=== PATIENT | female | born 1940 | race Caucasian/White ===

== ENCOUNTER → 2017-06-24 14:30 | Outpatient (CLI) | payer MEDICARE, MEDICAID | END | disposition home or self-care (01) | LOC: D.MAMMO 10:15 | DX: Z12.31 Encounter for screening mammogram for malignant neoplasm of breast (principal) ==

== ENCOUNTER 2017-09-26 09:27 | Emergency (ER) | payer MEDICARE, MEDICAID ==
[2017-09-26 12:28] LABS: BASOPHILS 0.1 % (0-2); EOSINOPHILS 0.1 % (0-7); HEMATOCRIT 36.2 % (36.0-48.0); HEMOGLOBIN 12.1 g/dL (12-16); IMMATURE GRANULOCYTES 0.4 % (0-5); LYMPHOCYTES 9.3 % (15-50); MCH 27.9 pg (26.0-34.0); MCHC 33.4 g/dL (31.0-37.0); MCV 83.6 fL (80.0-100.0); MONOCYTES 7.2 % (2-11); NEUTROPHILS 82.9 % (40-80); PLATELET COUNT 257 10x3/uL (130-400); RBC 4.33 10x6/uL (4.00-5.40); RDW 13.8 % (11.5-14.5); WBC 17.5 10x3/uL (4.8-10.8)
[2017-09-26 12:36] LABS: APTT 55.4 SECONDS (22.8-39.4); INR 2.3 (0.85-1.17); PROTIME 24.7 SECONDS (11.6-15.0)
[2017-09-26 12:40] LABS: ALBUMIN 3.1 g/dL (3.4-5.0); ALKALINE PHOSPHATASE 108 U/L (46-116); ALT (SGPT) 17 U/L (10-68); BILIRUBIN - TOTAL 0.37 mg/dL (0.2-1.3); CALC OSMOLALITY 274 mosm/kg (275-300); CALCIUM 9.3 mg/dL (8.5-10.1); CARBON DIOXIDE 21.9 mmol/L (21.0-32.0); CHLORIDE - SERUM 102 mmol/L (98-107); CREATININE - SERUM 0.7 mg/dL (0.6-1.3); GLUCOSE 125 mg/dL (74-106); POTASSIUM - SERUM 3.4 mmol/L (3.5-5.1); PROTEIN - SERUM 7.3 g/dL (6.4-8.2); SODIUM 136 mmol/L (136-145); UREA NITROGEN 19 mg/dL (7-18); eGFR NON AFRICAN AMERICAN 86 mL/min (90-120)
[2017-09-26 14:11] LABS: APPEARANCE CLEAR (CLEAR); BILIRUBIN NEGATIVE (NEGATIVE); COLOR YELLOW (YELLOW); GLUCOSE NEGATIVE (NEGATIVE); KETONE NEGATIVE (NEGATIVE); NITRITE NEGATIVE (NEGATIVE); PROTEIN 1+ mg/dL (NEGATIVE); SPECIFIC GRAVITY 1.015 (1.005-1.020); UROBILINOGEN NORMAL (NORMAL)
[2017-09-26 14:13] LABS: WHITE CELLS - URINE 0-5 /hpf (0-5)
[2017-09-26 14:14] LABS: BACTERIA FEW /hpf (NONE SEEN); EPITHELIAL CELLS 0-5 /hpf (0-5); MUCUS >1+ /lpf (NONE SEEN)
== END 2017-09-26 14:50 | disposition home or self-care (01) ==
LOC: D.ER 09:27
PROVIDERS: Nurse Practitioner Family
DX: S32.019A Unspecified fracture of first lumbar vertebra, initial encounter for closed fracture (principal); W01.0XXA Fall on same level from slipping, tripping and stumbling without subsequent striking against object, initial encounter; Y93.89 Activity, other specified; Y92.019 Unspecified place in single-family (private) house as the place of occurrence of the external cause; Z86.73 Personal history of transient ischemic attack (TIA), and cerebral infarction without residual deficits; I10 Essential (primary) hypertension

== ENCOUNTER 2018-06-26 08:00 | Outpatient (CLI) | payer MEDICARE, MEDICAID | END 2018-06-26 09:00 | disposition home or self-care (01) | LOC: D.MAMMO 08:00 | DX: Z12.31 Encounter for screening mammogram for malignant neoplasm of breast (principal) ==

== ENCOUNTER → 2019-06-19 09:29 | Outpatient (CLI) | payer MEDICARE, MEDICAID | END | disposition home or self-care (01) | LOC: D.HCCECHO 09:29 | PROVIDERS: ATTEND Internal Medicine Cardiovascular Disease | DX: I10 Essential (primary) hypertension (principal) ==

== ENCOUNTER 2019-06-28 08:00 | Outpatient (CLI) | payer MEDICARE, MEDICAID | END 2019-06-28 23:59 | disposition home or self-care (01) | LOC: D.MAMMO 08:00 | PROVIDERS: ATTEND Family Medicine | DX: Z12.31 Encounter for screening mammogram for malignant neoplasm of breast (principal) ==

== ENCOUNTER 2019-12-15 22:08 | Emergency (ER) | payer MEDICARE ==
[~2019-12-15] VITALS: Ht 172.7 cm; Wt 59.1 kg
[2019-12-15 22:25] VITALS: Ht 172.7 cm; Wt 59.1 kg
[2019-12-15] MEDS ORDERED: AMBIEN5 MG (22:29)
[2019-12-15] MEDS ORDERED: COUMADIN3 MG PO (22:29)
[2019-12-15] MEDS ORDERED: VALSARTAN-HCTZ1 EAC2 PO (22:29)
[2019-12-15] MEDS ORDERED: GEMFIBROZIL600 MG PO (22:29)
[2019-12-15] MEDS ORDERED: POTASSIUM CHLO10 ME1 PO (22:30)
[2019-12-15] MEDS ORDERED: OMEPRAZOLE20 M1 PO (22:30)
[2019-12-15] MEDS ORDERED: GLUCOPHAGE500 MG PO (22:30)
[2019-12-15] MEDS ORDERED: CRESTOR10 MG PO (22:31)
[2019-12-15] MEDS ORDERED: COREG12.5 MG (22:31)
[2019-12-15 22:46] LABS: BASOPHILS 0.4 % (0-2); EOSINOPHILS 1.9 % (0-7); HEMATOCRIT 37.1 % (36.0-48.0); HEMOGLOBIN 11.9 g/dL (12-16); IMMATURE GRANULOCYTES 0.1 % (0-5); LYMPHOCYTES 36.3 % (15-50); MCH 25.9 pg (26.0-34.0); MCHC 32.1 g/dL (31.0-37.0); MCV 80.7 fL (80.0-100.0); MEAN PLATELET VOLUME 9.2 fL (7.4-10.4); MONOCYTES 12.2 % (2-11); NEUTROPHILS 49.1 % (40-80); PLATELET COUNT 293 10x3/uL (130-400); RDW 14.4 % (11.5-14.5); WBC 7.2 10x3/uL (4.8-10.8)
[2019-12-15 22:54] LABS: ANION GAP 13.8 mmol/L (8-16); CALCIUM 9.4 mg/dL (8.5-10.1); CARBON DIOXIDE 25.6 mmol/L (21.0-32.0); POTASSIUM - SERUM 4.4 mmol/L (3.5-5.1)
[2019-12-15 22:55] LABS: INR 3.37 (0.85-1.17); PROTIME 33.5 SECONDS (11.6-15.0)
[2019-12-15 22:56] LABS: APTT 56.6 SECONDS (22.8-39.4)
[2019-12-15 23:00] LABS: ALBUMIN 4.2 g/dL (3.4-5.0); BILIRUBIN - TOTAL 0.41 mg/dL (0.2-1.3); PROTEIN - SERUM 7.9 g/dL (6.4-8.2)
[2019-12-15 23:27] VITALS: BP 125/74
== END 2019-12-15 23:27 | disposition home or self-care (01) ==
LOC: D.ER 22:08
PROVIDERS: Family Medicine
DX: R04.0 Epistaxis (principal); I10 Essential (primary) hypertension